=== PATIENT | female | born 1960 | race Caucasian/White ===

== ENCOUNTER 2019-04-14 19:42 | Emergency (ER) | payer OTHER ==
[~2019-04-14] VITALS: Ht 154.9 cm; Wt 81.6 kg
[~2019-04-14 19:42] MED LIST: ACETAMINOPHEN/H1 TA6 PO; AMLODIPINE BESYL5 M1 PO; ASPIR 8181 MG PO; BG MC; COL100 PO; FER300 PO; GEMFIBROZIL600 MG PO; HEP5I SC; HUMULIN R100 U/1 M1 SC; HYDROCHLOROTHIA25 MG PO; LAC PO; LANTUS SOLOS100 U/M1; MAC100 PO; MAG PO; MULTI-VITAMINS1 TAB PO; PAX20 PO; TENORMIN50 MG PO; VITC PO
[2019-04-14 19:50] VITALS: Ht 154.9 cm; Wt 81.6 kg
[2019-04-14 21:11] LABS: BASOPHIL % 0.6 % (0-2); PLATELET COUNT 284 x10^3mcL (130-400); RED CELL DISTRIBUTION WIDTH 14.2 % (11.5-14.5)
[2019-04-14 21:22] LABS: CALCIUM 9.4 mg/dL (8.5-10.1); CARBON DIOXIDE 34.2 mmol/L (21-32); CREATININE SERUM 1.1 mg/dL (0.6-1.0); POTASSIUM SERUM 3.1 mmol/L (3.5-5.1)
[2019-04-14 21:29] LABS: ALBUMIN 4.2 g/dL (3.4-5.0); BILIRUBIN TOTAL 0.24 mg/dL (0.20-1.00)
[2019-04-14 21:30] LABS: TOTAL PROTEIN, SERUM 8.7 g/dL (6.4-8.2)
[2019-04-14 22:29] VITALS: BP 142/64
== END 2019-04-14 22:58 | disposition home or self-care (01) ==
LOC: ED 19:42
PROVIDERS: Emergency Medicine
DX: H81.10 Benign paroxysmal vertigo, unspecified ear (principal); I10 Essential (primary) hypertension; E11.9 Type 2 diabetes mellitus without complications; E78.00 Pure hypercholesterolemia, unspecified
CPT/HCPCS: 36415; 82962; J7030; J8597; Q0162